=== PATIENT | female | born 1995 ===

== ENCOUNTER 2024-07-07 06:23 | Inpatient (IN) | payer OTHER ==
[2024-07-07] VITALS (7 sets, daily range): BP systolic 118–135; BP diastolic 70–84; O2SAT 99
[~2024-07-07] VITALS: Ht 152.4 cm; Wt 3.2 kg
[2024-07-07] MEDS ORDERED: PRENATABS RX T1 EACH PO (06:39)
[2024-07-07] MEDS ORDERED: OXYTOCIN 500 ML IV SCH (06:45)
[2024-07-07] MEDS ORDERED: RINGERS SOLUTION,LACTATED 1,000 ML IV SCH (06:45)
[2024-07-07 07:57] LABS: HEMATOCRIT 36.3 % (36.0-45.00); HEMOGLOBIN 12.4 g/dL (12.0-15.00); MEAN CELL VOLUME 91.4 fL (80.00-100.00); MEAN CORPUSCULAR HEMOGLOBIN 31.3 pg (27.00-32.0); MEAN CORPUSCULAR HGB CONC 34.3 g/dl (32.0-36.0); PLATELET COUNT 189 K/uL (150-450); RED BLOOD COUNT 3.97 M/uL (4.00-6.00); RED CELL DISTRIBUTION WIDTH 14.5 % (11.5-14.5)
[2024-07-07 08:26] LABS: INR < 0.93
[2024-07-07 08:47] LABS: ALBUMIN 2.6 gm/dL (3.4-5.0); BILIRUBIN TOTAL 0.71 mg/dL (0.3-1.2); CALCIUM 9.4 mg/dL (8.5-10.1); CREATININE SERUM 0.72 mg/dL (0.55-1.02); GFR 95.77; GLOBULINA 3.5 G/DL (2.4-3.5); POTASSIUM 3.69 mEq/L (3.5-5.1); TOTAL PROTEIN 6.1 gm/dL (6.4-8.2)
[2024-07-07] MEDS ORDERED: TERBUTALINE SULFATE 1 MG/ML AMPUL SUBCUTANEO ONE (17:45)
[2024-07-07] MEDS ORDERED: MEPERIDINE HCL/PF 25 MG/ML VIAL IV ONE (18:00)
[2024-07-07] MEDS ORDERED: PROMETHAZINE HCL 25 MG/ML AMPUL IV NR (18:00)
[2024-07-07] MEDS ORDERED: KETOROLAC TROMETHAMINE 30 MG VIAL IV SCH (20:31)
[2024-07-07] MEDS ORDERED: OXYTOCIN 1,000 ML IV ONE (20:45)
[2024-07-07] MEDS ORDERED: CEFAZOLIN SODIUM 1,000 MG VIAL IV SCH (20:45)
[2024-07-07] MEDS ORDERED: MORPHINE SULFATE 4 MG/ML VIAL IV SCH (21:00)
[2024-07-07] MEDS ORDERED: OXYTOCIN 10 UNIT/ML (10ML) IV ONE (22:45)
[2024-07-07] MEDS ORDERED: ERYTHROMYCIN BASE OPHT 1GM EACH TUBE OP ONE (22:45)
[2024-07-08] MEDS ORDERED: MORPHINE SULFATE 4 MG/ML VIAL IV ONE ×2 (01:00)
[2024-07-08 02:53] VITALS: BP 101/64
[2024-07-08] MEDS ORDERED: ACETAMINOPHEN 500 MG GEL..CAP PO SCH (06:00)
[2024-07-08 06:18] LABS: HEMOGLOBIN 10.8 g/dL (12.0-15.00); MEAN CELL VOLUME 90.8 fL (80.00-100.00); MEAN CORPUSCULAR HEMOGLOBIN 31.6 pg (27.00-32.0); MEAN CORPUSCULAR HGB CONC 34.8 g/dl (32.0-36.0); PLATELET COUNT 171 K/uL (150-450); RED BLOOD COUNT 3.42 M/uL (4.00-6.00); RED CELL DISTRIBUTION WIDTH 14.4 % (11.5-14.5)
[2024-07-08 08:00] VITALS: BP 115/75
[2024-07-08] MEDS ORDERED: PNV,CALCIUM 72/IRON/FOLIC ACID 1 TAB TABLET PO SCH (09:00)
[2024-07-08] MEDS ORDERED: GABAPENTIN 300 MG CAPSULE PO SCH (09:00)
[2024-07-08] MEDS ORDERED: SIMETHICONE 125 MG CAPSULE PO SCH (09:00)
[2024-07-08] MEDS ORDERED: DOCUSATE SODIUM 100MG CAP PO SCH (09:00)
[2024-07-08] MEDS ORDERED: IBUprofen 600 MG TABLET PO SCH (12:00)
[2024-07-08 16:00] VITALS: BP 119/79
[2024-07-09 01:54] VITALS: BP 108/70
[2024-07-09 06:30] VITALS: BP 110/67
[2024-07-09 08:00] VITALS: BP 117/80
== END 2024-07-09 13:09 | disposition home or self-care (01) | DRG 788 ==
LOC: LDR 06:23 → O/R 21:17 → OB/GYN 21:57
PROVIDERS: Obstetrics & Gynecology Gynecology; ADMIT Obstetrics & Gynecology; ATTEND Obstetrics & Gynecology
PROC: 4A1HXCZ Monitoring of Products of Conception, Cardiac Rate, External Approach (ICD-10-PCS; 2024-07-07)
PROC: 10D00Z1 Extraction of Products of Conception, Low, Open Approach (ICD-10-PCS; principal; 2024-07-07 20:00)
DX: O82 Encounter for cesarean delivery without indication (principal); O62.1 Secondary uterine inertia; Z3A.38 38 weeks gestation of pregnancy; Z37.0 Single live birth; Z20.822 Contact with and (suspected) exposure to COVID-19